=== PATIENT | male | born 2000 | race Hispanic/Latino ===

== ENCOUNTER 2022-07-30 03:01 | Emergency (ER) | payer OTHER ==
[2022-07-30] MEDS ORDERED: Ketorolac Tromethamine 30 MG/ML VIAL ONE (03:29)
[2022-07-30] MEDS ORDERED: CEFAZOLIN 1 GM VIAL ONE (03:29)
[2022-07-30] MEDS ORDERED: Boostrix 0.5 ML (Tdap) VIAL (>/=7 yrs of age) ONE (03:30)
[2022-07-30] MEDS ORDERED: Lidocaine 1% PF 5 ML VIAL ONE (05:10)
== END 2022-07-30 06:44 | disposition home or self-care (01) ==
LOC: ERS 03:01
DX: S06.9X9A Unspecified intracranial injury with loss of consciousness of unspecified duration, initial encounter (principal); S01.511A Laceration without foreign body of lip, initial encounter; F10.129 Alcohol abuse with intoxication, unspecified; Y04.2XXA Assault by strike against or bumped into by another person, initial encounter; Y92.89 Other specified places as the place of occurrence of the external cause; Z23 Encounter for immunization
CPT/HCPCS: 12011; 70450; 70486; 72125; 90471; 90715; 96374; 96375; J0690; J1885